=== PATIENT | male | born 1990 | race Hispanic/Latino ===

== ENCOUNTER 2019-08-30 18:06 | Emergency (ER) | payer BC, OTHER ==
--- NOTE | 2019-08-30 19:17 | RAD ---
Exam: Chest one view HISTORY:Chest pain. Patient is being tested for COVID 19. Workset Vessel. Comparison: None FINDINGS: Cardiac silhouette: Normal Aorta: Unremarkable Pulmonary vessels: Normal Costophrenic angles: Clear LUNGS: No masses or consolidation. Pneumothorax: None Osseous abnormalities: None IMPRESSION: No acute cardiopulmonary process.
[2019-08-31 18:39] LABS: SARS-CoV-2 MS2 Positive; SARS-CoV-2 N Gene Positive; SARS-CoV-2 S Gene Negative; SARS-CoV-2 orf1ab Positive
--- NOTE | 2019-09-01 16:09 | EKG ---
Test Reason : Blood Pressure : / mmHG Vent. Rate : 071 BPM Atrial Rate : 071 BPM P-R Int : 150 ms QRS Dur : 086 ms QT Int : 358 ms P-R-T Axes : 077 033 046 degrees QTc Int : 389 ms Normal sinus rhythm Normal ECG Confirmed by MANDO MARROQUIN DO ([id number]), news copy editor LETI PERALTA ([id number]) on 09/01/2019 4:09:10 PM Referred By: Confirmed By:MANDO MARROQUIN DO
== END 2019-08-30 20:10 | disposition home or self-care (01) ==
LOC: ERS 18:06
DX: U07.1 COVID-19 (principal); R07.9 Chest pain, unspecified
CPT/HCPCS: 71045; 87635; 93005; 94760; U0003